=== PATIENT | female | born 1985 | race Caucasian/White ===

== ENCOUNTER 2018-04-15 00:56 | Emergency (ER) | payer SELFPAY, OTHER ==
[2018-04-15 01:42] LABS: CALCIUM OXALATE CRYSTALS RFX SMALL; KETONE, URINE AUTO RFX NEGATIVE (NEGATIVE); LEUKOCYTE ESTERASE UR AUTO RFX 3+ (NEGATIVE); MUCUS, URINE RFX MODERATE (NEGATIVE); NITRITE, URINE AUTO RFX NEGATIVE (NEGATIVE); RBC, URINE AUTO RFX 26 /HPF (0-3); SPECIFIC GRAVITY UR AUTO RFX 1.018 (1.002-1.035); SQUAM EPITHELIAL CELL UR AURFX 14 /HPF (0-6)
[2018-04-15 01:43] LABS: WBC, URINE AUTO RFX 17 /HPF (0-3)
[2018-04-15] MEDS: CIPROFLOXACIN 500 MG TAB PO (06:42)
[2018-04-15] MEDS: FLUCONAZOLE 50MG TABLET PO (07:54)
[2018-04-15 09:37] LABS: CHLAMYDIA DNA AMPLIFICATION NEGATIVE (NEGATIVE); GC DNA AMPLIFICATION NEGATIVE (NEGATIVE)
== END 2018-04-15 07:58 | disposition home or self-care (01) ==
LOC: M ED 00:56
DX: B37.3 Candidiasis of vulva and vagina (principal); N39.0 Urinary tract infection, site not specified; Z88.8 Allergy status to other drugs, medicaments and biological substances; Z91.048 Other nonmedicinal substance allergy status; F17.210 Nicotine dependence, cigarettes, uncomplicated
CPT/HCPCS: 81001

== ENCOUNTER 2018-05-02 07:45 | Emergency (ER) | payer SELFPAY ==
[2018-05-02 08:32] LABS: BASO # 0.1 10^3/uL (0.0-0.2); BASO % 0.6 % (0.0-1.0); EOS # 0.2 10^3/uL (0.0-0.50); EOS % 2.3 % (0.0-3.0); HEMATOCRIT 38.1 % (36.0-47.0); HEMOGLOBIN 12.5 g/dl (12.0-15.5); IMMATURE GRANULOCYTE % 0.5 % (0-3.0); LYMPH # 2.2 10^3/uL (1.5-4.5); LYMPH % 24.8 % (24.0-44.0); MEAN CORPUSCULAR HEMOGLOBIN 28.5 pg (27.0-33.0); MEAN CORPUSCULAR HGB CONC 32.8 g/dl (32.0-36.5); MONO # 0.7 10^3/uL (0.0-0.8); NEUTROPHILS # 5.6 10^3/uL (1.8-7.7); NEUTROPHILS % 63.8 % (36.0-66.0); PLATELET COUNT, AUTOMATED 306 10^3/uL (150-450); RED BLOOD COUNT 4.38 10^6/uL (4.00-5.40); RED CELL DISTRIBUTION WIDTH 14.5 % (11.5-14.5); WHITE BLOOD COUNT 8.8 10^3/uL (4.0-10.0)
[2018-05-02 08:46] LABS: CONTROL LINE HCG INT CTR LINE PRESENT; HCG, SERUM QUALITATIVE NEGATIVE (NEGATIVE)
[2018-05-02 08:56] LABS: ALBUMIN 3.2 GM/DL (3.2-5.2); ALBUMIN/GLOBULIN RATIO 0.82 (1.00-1.93); ALKALINE PHOSPHATASE 67 U/L (45-117); ALT/SGPT 18 U/L (12-78); ANION GAP 6 MEQ/L (8-16); AST/SGOT 8 U/L (7-37); BILIRUBIN,DIRECT < 0.1 MG/DL (0.0-0.2); BILIRUBIN,TOTAL 0.2 MG/DL (0.2-1.0); BLOOD UREA NITROGEN 6 MG/DL (7-18); CALCIUM LEVEL 8.8 MG/DL (8.5-10.1); CARBON DIOXIDE LEVEL 27 MEQ/L (21-32); CHLORIDE LEVEL 108 MEQ/L (98-107); CPK CREATINE PHOSPHOKINASE 47 U/L (26-192); CREATININE FOR GFR 0.86 MG/DL (0.55-1.30); FREE T4 1.09 NG/DL (0.76-1.46); GLOMERULAR FILTRATION RATE > 60.0 (>60); GLUCOSE, FASTING 91 MG/DL (70-100); LIPASE 206 U/L (73-393); PHOSPHORUS LEVEL 2.4 MG/DL (2.5-4.9); POTASSIUM SERUM 3.6 MEQ/L (3.5-5.1); SODIUM LEVEL 141 MEQ/L (136-145); TOTAL PROTEIN 7.1 GM/DL (6.4-8.2); TROPONIN I < 0.02 NG/ML (< 0.10)
[2018-05-02] MEDS: NITROGLYCERIN 0.4 MG SUBL TABLET SL (08:56)
[2018-05-02 09:01] LABS: CK-MB VALUE MASS < 1.0 NG/ML (<3.6); MB/CK RELATIVE INDEX 2.12 (< OR =4); THYROID STIMULATING HORMONE 0.308 uIU/ML (0.358-3.740)
[2018-05-02] MEDS ORDERED: ISOVUE-370 76% 100ML VIAL (Q9967) As Ordered (10:00)
== END 2018-05-02 13:33 | disposition left against medical advice (07) ==
LOC: M ED 07:45
DX: R07.9 Chest pain, unspecified (principal); R06.02 Shortness of breath; I10 Essential (primary) hypertension; Q07.00 Arnold-Chiari syndrome without spina bifida or hydrocephalus; F41.9 Anxiety disorder, unspecified; F33.9 Major depressive disorder, recurrent, unspecified; Z98.2 Presence of cerebrospinal fluid drainage device; Z88.8 Allergy status to other drugs, medicaments and biological substances; Z91.048 Other nonmedicinal substance allergy status; F17.210 Nicotine dependence, cigarettes, uncomplicated
CPT/HCPCS: Q9967

== ENCOUNTER 2018-06-25 22:51 | Emergency (ER) | payer SELFPAY ==
[2018-06-26 00:50] LABS: BASO # 0.1 10^3/uL (0.0-0.2); BASO % 0.6 % (0.0-1.0); EOS # 0.1 10^3/uL (0.0-0.50); EOS % 1.4 % (0.0-3.0); HEMOGLOBIN 12.8 g/dl (12.0-15.5); IMMATURE GRANULOCYTE % 0.3 % (0-3.0); LYMPH # 2.2 10^3/uL (1.5-4.5); LYMPH % 23.1 % (24.0-44.0); MEAN CORPUSCULAR HEMOGLOBIN 28.2 pg (27.0-33.0); MEAN CORPUSCULAR HGB CONC 32.8 g/dl (32.0-36.5); MEAN CORPUSCULAR VOLUME 85.9 fl (80.0-96.0); MONO # 0.7 10^3/uL (0.0-0.8); MONO % 6.9 % (0.0-5.0); NEUTROPHILS # 6.4 10^3/uL (1.8-7.7); NEUTROPHILS % 67.7 % (36.0-66.0); PLATELET COUNT, AUTOMATED 316 10^3/uL (150-450); RED BLOOD COUNT 4.54 10^6/uL (4.00-5.40); RED CELL DISTRIBUTION WIDTH 14.9 % (11.5-14.5); WHITE BLOOD COUNT 9.5 10^3/uL (4.0-10.0)
[2018-06-26] MEDS: CLINDAMYCIN 900 MG in APPROPRIATE DILUENT 1 EA IV (01:00)
[2018-06-26] MEDS: MORPHINE 4 MG/ML 1ML VIAL/SYRINGE (J2270) IV (01:01)
[2018-06-26] MEDS: ONDANSETRON 4MG/2ML VIAL (J2405) IV (01:02)
[2018-06-26] MEDS: NS 1,000 ML IV (01:02)
[2018-06-26 01:11] LABS: ERYTHROCYTE SEDIMENTATION RATE 22 mm/hr (0-20)
[2018-06-26] MEDS: BACTRIM 160MG/800MG DS TAB PO (01:15)
[2018-06-26 01:22] LABS: ANION GAP 9 MEQ/L (8-16); BLOOD UREA NITROGEN 8 MG/DL (7-18); C REACTIVE PROTEIN QUANTITATIV 1.23 MG/DL (0.00-0.30); CALCIUM LEVEL 8.5 MG/DL (8.5-10.1); CARBON DIOXIDE LEVEL 24 MEQ/L (21-32); CHLORIDE LEVEL 108 MEQ/L (98-107); CREATININE FOR GFR 0.92 MG/DL (0.55-1.30); GLOMERULAR FILTRATION RATE > 60.0 (>60); GLUCOSE, FASTING 97 MG/DL (70-100); POTASSIUM SERUM 3.9 MEQ/L (3.5-5.1); SODIUM LEVEL 141 MEQ/L (136-145)
[2018-06-26] MEDS: NORCO 5/325MG TABLET (BULK FOR ED) PO (01:31)
== END 2018-06-26 02:18 | disposition home or self-care (01) ==
LOC: M ED 06-26 02:18
DX: L02.411 Cutaneous abscess of right axilla (principal); I10 Essential (primary) hypertension; G93.5 Compression of brain; Z86.14 Personal history of Methicillin resistant Staphylococcus aureus infection; F17.200 Nicotine dependence, unspecified, uncomplicated; Z88.8 Allergy status to other drugs, medicaments and biological substances
CPT/HCPCS: J2270

== ENCOUNTER 2018-07-12 12:37 | Emergency (ER) | payer SELFPAY | END 2018-07-12 13:03 | disposition home or self-care (01) | LOC: M ED 12:37 | DX: J02.9 Acute pharyngitis, unspecified (principal) | CPT/HCPCS: 99282 ==

== ENCOUNTER 2018-12-21 22:23 | Emergency (ER) | payer SELFPAY ==
[~2018-12-21] VITALS: Ht 152.4 cm; Wt 76.0 kg
[~2018-12-21 22:23] MED LIST: BACT800T5 PO; CIPR-249 PO; HYDR-3715 PO; IBUP-1022 PO; PRED20TA PO
[2018-12-21] MEDS ORDERED: CYCLOBENZAPRINE 10 MG TAB PO ONE (23:30)
[2018-12-21] MEDS ORDERED: IBUPROFEN 600 MG TAB PO ONE (23:30)
--- NOTE | 2018-12-21 23:43 | REPVR ---
EXAM: CT Cervical Spine Without Contrast EXAM DATE/TIME: 12/21/2018 11:36 PM CLINICAL HISTORY: 33 years old, female; Pain; Neck pain; Additional info: Fall/pain TECHNIQUE: Imaging protocol: Axial computed tomography images of the cervical spine without intravenous contrast. Coronal and sagittal reformatted images were created and reviewed. Radiation optimization: All CT scans at this facility use at least one of these dose optimization techniques: automated exposure control; mA and/or kV adjustment per patient size (includes targeted exams where dose is matched to clinical indication); or iterative reconstruction. COMPARISON: No relevant prior studies available. FINDINGS: Vertebrae: No acute fracture. Normal alignment. Discs/Spinal canal/Neural foramina: No spinal stenosis. No neural foraminal narrowing. Soft tissues: Unremarkable. Lungs: Lung apices are normal. IMPRESSION: No acute findings. Electronically signed by: Kendell Hinds On 12/21/2018 23:43:35 PM
[2018-12-22] MEDS ORDERED: IBUP-1022 PO (00:03)
[2018-12-22] MEDS ORDERED: CYCL10TA PO (00:03)
[2018-12-22 00:18] VITALS: BP 128/72
== END 2018-12-22 00:20 | disposition home or self-care (01) ==
LOC: M ED 22:23
DX: S13.9XXA Sprain of joints and ligaments of unspecified parts of neck, initial encounter (principal); W01.0XXA Fall on same level from slipping, tripping and stumbling without subsequent striking against object, initial encounter; Y92.410 Unspecified street and highway as the place of occurrence of the external cause; Y93.9 Activity, unspecified; Y99.9 Unspecified external cause status; Z72.0 Tobacco use; Z88.8 Allergy status to other drugs, medicaments and biological substances

== ENCOUNTER 2019-02-08 21:42 | Emergency (ER) | payer MEDICAID, SELFPAY ==
[~2019-02-08] VITALS: Ht 152.4 cm; Wt 76.4 kg
[~2019-02-08 21:42] MED LIST changes: +CYCL10TA PO
[2019-02-08 21:43] VITALS: BP 115/72
[2019-02-08] MEDS ORDERED: IBUP-1114 PO (22:26)
[2019-02-08] MEDS ORDERED: IBUPROFEN 400 MG TAB PO ONE (22:30)
--- NOTE | 2019-02-09 08:02 | REP ---
Right ankle series: Four views. History: Injury. Findings: Four views of the right ankle demonstrate intact ankle mortise. No fractures seen. Bones, joints and soft tissues are unremarkable. Impression: No fracture seen. There is evidence of an os naviculare incidentally noted. Electronically Signed by Tripp Daniel MD 02/09/2019 07:53 A
== END 2019-02-08 22:34 | disposition home or self-care (01) ==
LOC: M ED 21:42
DX: S93.401A Sprain of unspecified ligament of right ankle, initial encounter (principal); X50.1XXA Overexertion from prolonged static or awkward postures, initial encounter; Y92.410 Unspecified street and highway as the place of occurrence of the external cause; Y93.9 Activity, unspecified; Y99.9 Unspecified external cause status; I10 Essential (primary) hypertension; F32.9 Major depressive disorder, single episode, unspecified; Z72.0 Tobacco use; Z88.1 Allergy status to other antibiotic agents; Z88.8 Allergy status to other drugs, medicaments and biological substances

== ENCOUNTER → 2019-04-08 | Outpatient (REF) | payer OTHER, MEDICAID ==
[~2019-04-08] MED LIST changes: +IBUP-1114 PO
[2019-04-08 18:34] LABS: ALBUMIN 3.6 GM/DL (3.2-5.2); ALT/SGPT 16 U/L (12-78); BILIRUBIN,TOTAL 0.2 MG/DL (0.2-1.0); BLOOD UREA NITROGEN 11 MG/DL (7-18); CALCIUM LEVEL 8.5 MG/DL (8.5-10.1); CARBON DIOXIDE LEVEL 28 MEQ/L (21-32); CHLORIDE LEVEL 109 MEQ/L (98-107); CHOLESTEROL LEVEL 137 MG/DL (<200); CHOLESTEROL RISK RATIO 4.892 (<5); CREATININE FOR GFR 0.82 MG/DL (0.55-1.30); FREE T4 1.06 NG/DL (0.76-1.46); GLOMERULAR FILTRATION RATE > 60.0 (>60); GLUCOSE, FASTING 84 MG/DL (70-100); HDL CHOLESTEROL 28 MG/DL (>40); LDL CHOLESTEROL 78 MG/DL (<100); NON-HDL-C 109 MG/DL; SODIUM LEVEL 141 MEQ/L (136-145); THYROID STIMULATING HORMONE 0.195 uIU/ML (0.358-3.740); TOTAL PROTEIN 7.1 GM/DL (6.4-8.2); TRIGLYCERIDES LEVEL 153 MG/DL (<150)
[2019-04-08 18:36] LABS: TOTAL 25(OH) VITAMIN D 22.5 NG/ML (30.0-100.0)
[2019-04-08 18:41] LABS: BASO # 0.1 10^3/uL (0.0-0.2); BASO % 0.9 % (0.0-1.0); EOS # 0.2 10^3/uL (0.0-0.50); EOS % 1.6 % (0.0-3.0); HEMATOCRIT 41.3 % (36.0-47.0); HEMOGLOBIN 13.4 g/dl (12.0-15.5); LYMPH # 2.7 10^3/uL (1.5-4.5); MEAN CORPUSCULAR HEMOGLOBIN 30.3 pg (27.0-33.0); MEAN CORPUSCULAR HGB CONC 32.4 g/dl (32.0-36.5); MEAN CORPUSCULAR VOLUME 93.4 fl (80.0-96.0); MONO # 0.7 10^3/uL (0.0-0.8); MONO % 8.1 % (0.0-5.0); NEUTROPHILS # 5.5 10^3/uL (1.8-7.7); PLATELET COUNT, AUTOMATED 305 10^3/uL (150-450); RED BLOOD COUNT 4.42 10^6/uL (4.00-5.40); WHITE BLOOD COUNT 9.2 10^3/uL (4.0-10.0)
[2019-04-08 18:54] LABS: HEMOGLOBIN A1c 5.9 %
[2019-04-08 18:58] LABS: APPEARANCE, URINE MANUAL HAZY (CLEAR); COLOR, URINE MANUAL YELLOW (YELLOW)
[2019-04-08 18:59] LABS: BILIRUBIN, URINE MANUAL NEGATIVE (NEGATIVE); BLOOD URINE MANUAL POSITIVE (NEGATIVE); GLUCOSE, URINE (UA) MANUAL NEGATIVE (NEGATIVE); KETONE, URINE MANUAL NEGATIVE (NEGATIVE); LEUKOCYTE ESTERASE, URINE MAN POSITIVE (NEGATIVE); NITRITE, URINE MANUAL POSITIVE (NEGATIVE); PROTEIN, URINE MANUAL NEGATIVE (NEGATIVE); SPECIFIC GRAVITY,URINE MANUAL 1.015 (1.002-1.035); UROBILINOGEN, URINE MANUAL NORMAL (NORMAL)
[2019-04-08 23:00] LABS: BACTERIA, URINE LARGE AMOUNT; HYALINE CAST, URINE NONE SEEN /lpf (0-1); MUCUS, URINE SMALL AMOUNT (NEGATIVE); SQUAMOUS EPITHELIAL CELL URINE SMALL AMOUNT /hpf (SMALL AMT)
[2019-04-11 00:06] LABS: Lyme Disease IgG/IgM Antibodie <0.91 ISR (0.00-0.90); Lyme Disease IgM Ab Quantitati <0.80 index (0.00-0.79)
== END ==
LOC: M LAB REF 17:34
PROVIDERS: ATTEND Family Medicine
DX: Z13.228 Encounter for screening for other metabolic disorders (principal)

== ENCOUNTER 2019-07-01 21:24 | Emergency (ER) | payer MEDICAID, OTHER ==
[~2019-07-01] VITALS: Ht 152.4 cm; Wt 70.7 kg
[2019-07-01 21:26] VITALS: BP 133/76
[2019-07-01] MEDS ORDERED: KETOROLAC 60 MG/2 ML VIAL (J1885) IM ONE (22:45)
[2019-07-01] MEDS ORDERED: METHOCARBAMOL 750 MG TAB PO ONE (22:45)
[2019-07-01] MEDS ORDERED: ROBA750T4 PO (23:26)
--- NOTE | 2019-07-02 07:11 | ECGEPIP ---
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
--- NOTE | 2019-07-02 08:19 | REP ---
Right shoulder: Three views. History: Injury. Findings: Three views of the right shoulder demonstrate normal alignment of the glenohumeral and acromioclavicular joints. No fracture or subluxation is seen. Periarticular soft tissues are unremarkable. There is a small exostosis or spur from the coracoid process which may relate to its ligamentous attachment to the clavicle. This is old. Impression: No acute fracture or subluxation. Mild spurring at the coracoid process. Electronically Signed by Tripp Daniel MD 07/02/2019 09:27 A
== END 2019-07-01 23:41 | disposition home or self-care (01) ==
LOC: M ED 21:24
DX: S46.811A Strain of other muscles, fascia and tendons at shoulder and upper arm level, right arm, initial encounter (principal); X58.XXXA Exposure to other specified factors, initial encounter; Y92.89 Other specified places as the place of occurrence of the external cause; I10 Essential (primary) hypertension; F17.210 Nicotine dependence, cigarettes, uncomplicated; Z88.8 Allergy status to other drugs, medicaments and biological substances; Z91.048 Other nonmedicinal substance allergy status
CPT/HCPCS: 73030; 93005; 96372; 99284; J1885

== ENCOUNTER 2019-09-11 19:38 | Emergency (ER) | payer OTHER ==
[~2019-09-11] VITALS: Ht 152.4 cm; Wt 61.3 kg
[~2019-09-11 19:38] MED LIST changes: +ROBA750T4 PO
[2019-09-11 19:39] VITALS: BP 140/80
[2019-09-11] MEDS ORDERED: DULO1CAP5 PO (19:44)
[2019-09-11] MEDS ORDERED: OMEPRAZOLE 20 MG CAP PO ONE (21:00)
[2019-09-11] MEDS ORDERED: PENICILLIN V POTASSIUM 500 MG TAB PO ONE (21:00)
[2019-09-11] MEDS ORDERED: OMEP-218 PO (21:09)
[2019-09-11] MEDS ORDERED: PENI500T PO (21:09)
== END 2019-09-11 21:20 | disposition home or self-care (01) ==
LOC: M ED 19:38
DX: J02.0 Streptococcal pharyngitis (principal); K21.9 Gastro-esophageal reflux disease without esophagitis; I10 Essential (primary) hypertension; F33.9 Major depressive disorder, recurrent, unspecified; F41.9 Anxiety disorder, unspecified; G93.5 Compression of brain; Z79.899 Other long term (current) drug therapy; Z88.8 Allergy status to other drugs, medicaments and biological substances; F17.210 Nicotine dependence, cigarettes, uncomplicated

== ENCOUNTER 2019-09-15 21:20 | Emergency (ER) | payer OTHER ==
[~2019-09-15] VITALS: Ht 152.4 cm; Wt 69.8 kg
[2019-09-15 21:20] VITALS: BP 135/88
[~2019-09-15 21:20] MED LIST changes: +DULO1CAP5 PO; +OMEP-218 PO; +PENI500T PO
[2019-09-15 22:26] LABS: BASO # 0.1 10^3/uL (0.0-0.2); BASO % 0.8 % (0.0-1.0); EOS # 0.1 10^3/uL (0.0-0.5); EOS % 1.1 % (0.0-3.0); HEMATOCRIT 41.8 % (36.0-47.0); HEMOGLOBIN 13.8 g/dl (12.0-15.5); LYMPH # 2.5 10^3/uL (1.5-5.0); LYMPH % 27.4 % (24.0-44.0); MEAN CORPUSCULAR HEMOGLOBIN 29.6 pg (27.0-33.0); MEAN CORPUSCULAR VOLUME 89.5 fl (80.0-96.0); MONO # 0.7 10^3/uL (0.0-0.8); MONO % 7.4 % (0.0-5.0); NEUTROPHILS # 5.8 10^3/uL (1.5-8.5); NEUTROPHILS % 63.1 % (36.0-66.0); PLATELET COUNT, AUTOMATED 331 10^3/uL (150-450); RED BLOOD COUNT 4.67 10^6/uL (4.00-5.40); WHITE BLOOD COUNT 9.2 10^3/uL (4.0-10.0)
[2019-09-15] MEDS ORDERED: ONDANSETRON 4MG/2ML VIAL (J2405) IV ONE (22:30)
[2019-09-15 22:41] LABS: ALBUMIN 3.6 GM/DL (3.2-5.2); ALT/SGPT 12 U/L (12-78); BILIRUBIN,DIRECT < 0.1 MG/DL (0.0-0.2); BILIRUBIN,TOTAL 0.2 MG/DL (0.2-1.0); BLOOD UREA NITROGEN 10 MG/DL (7-18); CALCIUM LEVEL 9.6 MG/DL (8.5-10.1); CARBON DIOXIDE LEVEL 28 MEQ/L (21-32); CHLORIDE LEVEL 105 MEQ/L (98-107); CREATININE FOR GFR 1.07 MG/DL (0.55-1.30); GLOMERULAR FILTRATION RATE > 60.0 (>60); GLUCOSE, FASTING 91 MG/DL (70-100); LIPASE 201 U/L (73-393); POTASSIUM SERUM 4.2 MEQ/L (3.5-5.1); SODIUM LEVEL 140 MEQ/L (136-145); TOTAL PROTEIN 7.4 GM/DL (6.4-8.2)
[2019-09-15 22:45] LABS: HCG, SERUM QUALITATIVE NEGATIVE (NEGATIVE)
[2019-09-15] MEDS ORDERED: GASTROGRAFIN SOLUTION 30ML PO SCH (23:20)
== END 2019-09-15 23:22 | disposition left against medical advice (07) ==
LOC: M ED 21:20
DX: R10.9 Unspecified abdominal pain (principal); I10 Essential (primary) hypertension; F33.9 Major depressive disorder, recurrent, unspecified; F41.9 Anxiety disorder, unspecified; Z79.899 Other long term (current) drug therapy; Z88.8 Allergy status to other drugs, medicaments and biological substances; F17.210 Nicotine dependence, cigarettes, uncomplicated
CPT/HCPCS: 80048; 80076; 81001; 83690; 84703; 85025; 87086; 93041; 96374; 99284; J2405; Q9963

== ENCOUNTER 2019-12-11 00:12 | Emergency (ER) | payer OTHER ==
[~2019-12-11] VITALS: Ht 152.4 cm; Wt 69.2 kg
[2019-12-11 00:13] VITALS: BP 120/82
== END 2019-12-11 01:10 | disposition left against medical advice (07) ==
LOC: M ED 00:12
DX: Z53.21 Procedure and treatment not carried out due to patient leaving prior to being seen by health care provider (principal)

== ENCOUNTER 2019-12-21 22:22 | Emergency (ER) | payer OTHER ==
[~2019-12-21] VITALS: Ht 152.4 cm; Wt 69.2 kg
[2019-12-21] MEDS ORDERED: METR1GEL7 PV (23:49)
[2019-12-22 00:06] VITALS: BP 147/84
[2019-12-22 00:39] LABS: CHLAMYDIA DNA AMPLIFICATION NEGATIVE (NEGATIVE); GC DNA AMPLIFICATION NEGATIVE (NEGATIVE)
== END 2019-12-22 00:08 | disposition home or self-care (01) ==
LOC: M ED 22:22
DX: N76.0 Acute vaginitis (principal); R19.7 Diarrhea, unspecified; Q07.00 Arnold-Chiari syndrome without spina bifida or hydrocephalus; R56.9 Unspecified convulsions; I10 Essential (primary) hypertension; M54.9 Dorsalgia, unspecified; F41.9 Anxiety disorder, unspecified; F32.9 Major depressive disorder, single episode, unspecified; Z86.14 Personal history of Methicillin resistant Staphylococcus aureus infection; Z79.899 Other long term (current) drug therapy; Z88.8 Allergy status to other drugs, medicaments and biological substances; Z91.89 Other specified personal risk factors, not elsewhere classified

== ENCOUNTER → 2019-12-23 | Outpatient (REF) | payer OTHER ==
[~2019-12-23] MED LIST changes: +METR1GEL7 PV
== END ==
LOC: M LAB 19:55
PROVIDERS: ATTEND Physician Assistant Medical
DX: R19.7 Diarrhea, unspecified (principal)

== ENCOUNTER → 2020-12-14 | Outpatient (CLI) | payer OTHER ==
[~2020-12-14] MED LIST changes: +CYCL-707 PO; -CYCL10TA PO
--- NOTE | 2020-12-14 17:58 | REPVR ---
PROCEDURE INFORMATION: Exam: MR Head Without Contrast Exam date and time: 12/14/2020 4:32 PM Age: 35 years old Clinical indication: Other: Convulsions; Prior surgery; Surgery date: 6+ months; Surgery type: Chiari decompression; Additional info: R56.9-unspecified convulsions TECHNIQUE: Imaging protocol: MR of the head without contrast. COMPARISON: No relevant prior studies available. FINDINGS: Brain: Few scattered nonspecific T2/FLAIR hyperintensities of the periventricular and deep subcortical white matter. No intracranial hemorrhage or extra-axial fluid collection. No evidence of mass effect or midline shift. No restricted diffusion to suggest acute infarct. Cerebral ventricles: Normal. No ventriculomegaly. Bones/joints: Chronic postoperative changes compatible with suboccipital craniectomy. Paranasal sinuses: Normal as visualized. No acute sinusitis. Mastoid air cells: Partial opacification of left mastoid air cells. Orbital cavity: Unremarkable. Soft tissues: Unremarkable. IMPRESSION: 1. Few scattered nonspecific T2/FLAIR hyperintensities of the periventricular and deep subcortical white matter. Differential includes but is not limited to sequela of chronic small vessel ischemic change (though this would be greater than expected for patient's age) versus demyelinating disease such as multiple sclerosis. Recommend neurology consultation. 2. Partial opacification of left mastoid air cells. Electronically signed by: Garfield Sainz On 12/14/2020 17:58:44 PM
== END ==
LOC: M RAD 16:27
PROVIDERS: ATTEND Psychiatry & Neurology Epilepsy
DX: R56.9 Unspecified convulsions (principal)

== ENCOUNTER 2021-05-17 14:00 | Emergency (ER) | payer OTHER ==
[~2021-05-17] VITALS: Ht 149.9 cm; Wt 62.0 kg
[2021-05-17] MEDS ORDERED: EFFE37.5 PO (14:20)
[2021-05-17 14:43] LABS: BASO # 0.1 10^3/uL (0.0-0.2); EOS # 0.1 10^3/uL (0.0-0.5); EOS % 1.2 % (0.0-3.0); HEMATOCRIT 40.5 % (36.0-47.0); HEMOGLOBIN 13.5 g/dl (12.0-15.5); LYMPH # 1.7 10^3/uL (1.5-5.0); LYMPH % 22.4 % (24.0-44.0); MEAN CORPUSCULAR HEMOGLOBIN 29.9 pg (27.0-33.0); MEAN CORPUSCULAR HGB CONC 33.3 g/dl (32.0-36.5); MEAN CORPUSCULAR VOLUME 89.6 fl (80.0-96.0); MONO # 0.6 10^3/uL (0.0-0.8); NEUTROPHILS # 5.2 10^3/uL (1.5-8.5); NEUTROPHILS % 67.1 % (36.0-66.0); PLATELET COUNT, AUTOMATED 270 10^3/uL (150-450); RED BLOOD COUNT 4.52 10^6/uL (4.00-5.40); WHITE BLOOD COUNT 7.8 10^3/uL (4.0-10.0)
--- NOTE | 2021-05-17 14:49 | REP ---
INDICATION: CHEST PAIN. COMPARISON: 05/02/2018. TECHNIQUE: Single portable AP view of the chest was performed. FINDINGS: There is no acute infiltrate or pulmonary edema. Lungs are clear. The heart is not significantly enlarged. The mediastinal silhouette is unremarkable. The visualized osseous structures are intact. IMPRESSION: No acute pulmonary disease. <Electronically signed by Jose Rodríguez > 05/17/21 [id number]
[2021-05-17 15:12] LABS: BLOOD UREA NITROGEN 7 MG/DL (7-18); CALCIUM LEVEL 8.9 MG/DL (8.5-10.1); CARBON DIOXIDE LEVEL 24 MEQ/L (21-32); CHLORIDE LEVEL 108 MEQ/L (98-107); CK-MB VALUE MASS < 1.0 NG/ML (<3.6); CPK CREATINE PHOSPHOKINASE 58 U/L (26-192); CREATININE FOR GFR 0.85 MG/DL (0.55-1.30); GLOMERULAR FILTRATION RATE > 60.0 (>60); GLUCOSE, FASTING 84 MG/DL (70-100); MB/CK RELATIVE INDEX 1.72 (< OR =4); POTASSIUM SERUM 3.9 MEQ/L (3.5-5.1); SODIUM LEVEL 139 MEQ/L (136-145); TROPONIN I < 0.02 NG/ML (< 0.10)
[2021-05-17] MEDS ORDERED: ISOVUE-370 76% 100ML VIAL As Ordered ONE (16:01)
--- NOTE | 2021-05-17 17:29 | REPVR ---
PROCEDURE INFORMATION: Exam: CTA Chest With Contrast Exam date and time: 05/17/2021 4:59 PM Age: 36 years old Clinical indication: Pain; Chest pressure; Additional info: R/O pe TECHNIQUE: Imaging protocol: Computed tomographic angiography of the chest with contrast. Axial, coronal and sagittal reformatted images were created and reviewed. 3D rendering (Not supervised by radiologist): MIP and/or 3D reconstructed images were created by the technologist. Radiation optimization: All CT scans at this facility use at least one of these dose optimization techniques: automated exposure control; mA and/or kV adjustment per patient size (includes targeted exams where dose is matched to clinical indication); or iterative reconstruction. Contrast material: ISO 370; Contrast volume: 75 ml; Contrast route: INTRAVENOUS (IV); COMPARISON: CT ANGIO CHEST 05/02/2018 10:01 AM FINDINGS: Pulmonary arteries: Contrast opacification satisfactory. No intraluminal filling defect. Aorta: Unremarkable. No aneurysm or dissection. Lungs: Mild linear stranding and groundglass, likely due to atelectasis and/or scarring. No focal consolidation. Pleural spaces: Unremarkable. No pneumothorax. No pleural effusion. Heart: Unremarkable. No cardiomegaly. No pericardial effusion. Lymph nodes: No pathologically enlarged lymph nodes. Gallbladder and bile ducts: Status post cholecystectomy. No biliary ductal dilatation. Bones/joints: No acute osseous abnormality. Soft tissues: Unremarkable. IMPRESSION: 1. No CT evidence of pulmonary embolism. 2. Additional findings, as above. Electronically signed by: Ha Geller On 05/17/2021 17:29:20 PM
[2021-05-17 18:29] VITALS: BP 120/62
--- NOTE | 2021-05-17 20:33 | ECGEPIP ---
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
== END 2021-05-17 18:35 | disposition home or self-care (01) ==
LOC: M ED 14:00
DX: R07.89 Other chest pain (principal); R06.02 Shortness of breath; F33.9 Major depressive disorder, recurrent, unspecified; F41.9 Anxiety disorder, unspecified; G93.5 Compression of brain; Z88.8 Allergy status to other drugs, medicaments and biological substances; Z91.048 Other nonmedicinal substance allergy status; Z79.899 Other long term (current) drug therapy
CPT/HCPCS: 36415; 71045; 71275; 80048; 82550; 82553; 85025; 93005; 93041; 94760; 99285; Q9967

== ENCOUNTER → 2021-08-10 | Outpatient (CLI) | payer OTHER ==
[~2021-08-10] MED LIST changes: +EFFE37.5 PO
[2021-08-12 16:08] LABS: Lyme Disease IgG/IgM Antibodie <0.91 ISR (0.00-0.90); Lyme Disease IgM Ab Quantitati <0.80 index (0.00-0.79)
== END ==
LOC: M LAB 15:56
PROVIDERS: ATTEND Internal Medicine Cardiovascular Disease
DX: A69.20 Lyme disease, unspecified (principal)

== ENCOUNTER → 2021-10-03 | Outpatient (CLI) | payer OTHER ==
--- NOTE | 2021-10-03 14:39 | REP ---
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 COMPARISON: None. TECHNIQUE: Multiple views of the abdomen and pelvis are performed prior to and following MRI exam. FINDINGS: Lumbar peritoneal shunt is noted. The shunt appears to enter the right lower quadrant and the distal portion is coiled in the pelvis. There is no kinking. The valve in the right lower quadrant is unchanged in position comparing the pre MRI images to the post MRI images. A linear connector more proximally and another connector more distally also appear unchanged. Surgical clips are seen overlying the right abdomen. The bowel gas pattern is normal. A few phleboliths are seen in the pelvis. IMPRESSION: Lumbar peritoneal shunt valve position, visualized in the right lower quadrant, is unchanged comparing pre MRI to post MRI images. <Electronically signed by Jose Rodríguez > 10/03/21 [id number]
--- NOTE | 2021-10-03 14:42 | REPVR ---
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 COMPARISON: MRI-Brain without Contrast 12/14/2020 5:08 PM FINDINGS: Brain: Examination again reveals several small focal areas of increased T2 signal in bilateral frontal and parietal subcortical and deep white matter. These are nonspecific and could be secondary to chronic migraine headache, vasculitis, Lyme disease, demyelination and focal areas of chronic ischemia. No acute infarction, masses, midline shift or acute hemorrhage is seen. No acute intracranial abnormality is identified. There is no abnormal diffusion weighted signal intensity to suggest an acute ischemic event.The cortical morin / white matter interfaces are preserved throughout the brain.Intracranial flow voids are well maintained. Cerebral ventricles: The ventricular system is not dilated and is appropriate for the patient's age. Bones/joints: Stable changes of suboccipital craniectomy is again identified. Paranasal sinuses: Normal as visualized. No acute sinusitis. Mastoid air cells: Left-sided mastoid effusions/mastoiditis. Orbital cavity: Unremarkable. Soft tissues: Unremarkable. IMPRESSION: 1. Examination again reveals several small focal areas of increased T2 signal in bilateral frontal and parietal subcortical and deep white matter. These are nonspecific and could be secondary to chronic migraine headache, vasculitis, Lyme disease, demyelination and focal areas of chronic ischemia. 2. No acute infarction, masses, midline shift or acute hemorrhage is seen. No acute intracranial abnormality is identified. 3. Stable changes of suboccipital craniectomy is again identified. 4. Left-sided mastoid effusion/mastoiditis. Electronically signed by: Iker Tran On 10/03/2021 14:41:25 PM
--- NOTE | 2021-10-03 14:45 | REPVR ---
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 COMPARISON: CT Spine,cervical w/o contrast 12/21/2018 11:21 PM FINDINGS: Vertebrae: There is straightening of the cervical spine which could be secondary to positioning or muscle spasm. The cervical vertebral bodies are normal in height, signal intensity and alignment.No acute fracture or dislocation is seen.The atlantoaxial articulation is normal. Spinal cord: The cervical spinal cord is normal in thickness and signal intensity.There is no cord compression or intramedullary signal abnormality. Spinal epidural space: There is no evidence for epidural mass or hemorrhage. C2-C3: No significant disc disease. No significant spinal stenosis. C3-C4: There is no significant degenerative disc herniation.The spinal canal and neural foramina are patent and without significant stenosis. C4-C5: There is no significant degenerative disc herniation.The spinal canal and neural foramina are patent and without significant stenosis. C5-C6: There is a mild diffuse posterior bulge causing mild effacement of the thecal sac.There is bilateral uncovertebral hypertrophic changes.The facet joints demonstrate mild degenerative hypertrophy and sclerosis.There is no evidence of spinal canal narrowing. There is mild bilateral foraminal stenosis. C6-C7: Small diffuse posterior herniation. There is diffuse endplate spurring.There is bilateral uncovertebral hypertrophic changes.The facet joints demonstrate mild degenerative hypertrophy and sclerosis.There is no evidence of spinal canal narrowing. There is mild bilateral foraminal stenosis. C7-T1: There is no significant degenerative disc herniation.The spinal canal and neural foramina are patent and without significant stenosis. Other bones/joints: Stable changes of suboccipital craniectomy. Soft tissues: The prevertebral soft tissues appear normal. Brain: The visualized brain parenchyma is unremarkable. Vertebral arteries: Expected flow voids in the vertebral arteries. IMPRESSION: 1. MRI of the cervical spine reveals mild multilevel degenerative spondylitic changes and degenerative disc disease as described above. There is no evidence of spinal canal narrowing. 2. Stable changes of suboccipital craniectomy. Electronically signed by: Iker Tran On 10/03/2021 14:44:40 PM
== END ==
LOC: M PLAIMG 12:09
PROVIDERS: ATTEND Neurological Surgery
DX: Q07.00 Arnold-Chiari syndrome without spina bifida or hydrocephalus (principal); G93.2 Benign intracranial hypertension; M54.2 Cervicalgia

== ENCOUNTER 2021-10-19 20:31 | Emergency (ER) | payer OTHER, BC, SELFPAY, MEDICAID ==
[~2021-10-19] VITALS: Ht 149.9 cm; Wt 61.2 kg
[~2021-10-19 20:31] MED LIST changes: +OMEP-173 PO; -OMEP-218 PO
[2021-10-19 20:42] VITALS: BP 163/81
== END 2021-10-19 22:41 | disposition left against medical advice (07) ==
LOC: M ED 20:31
DX: Z53.21 Procedure and treatment not carried out due to patient leaving prior to being seen by health care provider (principal)